=== PATIENT | male | born 1975 | race Caucasian/White ===

== ENCOUNTER 2017-08-12 07:13 | Emergency (ER) | payer OTHER ==
[~2017-08-12] VITALS: Ht 175.3 cm; Wt 155.6 kg
[~2017-08-12 07:13] MED LIST: Adipex-P37.5 M1; FAMO20; LAMO100; LOSARTAN POTASS25 MG; MONT10T; OXYACE5T PO; PROM25 PO; TOPI100
[2017-08-12] MEDS ORDERED: ALBU90OI61 (07:46)
[2017-08-12] MEDS ORDERED: Prednisone20 MG PO (08:24)
[2017-08-12] MEDS ORDERED: ALBU2.5V5 NEB (08:24)
[2018-01-03] MEDS ORDERED: DEXILANT30 MG (10:44)
[2018-01-03] MEDS ORDERED: Lamictal100 MG (10:44)
[2018-01-03] MEDS ORDERED: IRBE150 (10:45)
[2018-01-03] MEDS ORDERED: MONT10T (10:45)
[2018-01-03] MEDS ORDERED: ALLEGRA ALLERGY60 MG (10:46)
[2018-01-03] MEDS ORDERED: CHOL10002 (10:46)
[2018-01-10] MEDS ORDERED: ALBU90OI6 (07:14)
== END 2017-08-12 08:30 | disposition home or self-care (01) ==
LOC: ER 07:13
DX: J06.9 Acute upper respiratory infection, unspecified (principal); I10 Essential (primary) hypertension; Z79.899 Other long term (current) drug therapy; Z88.0 Allergy status to penicillin; Z88.8 Allergy status to other drugs, medicaments and biological substances
CPT/HCPCS: 94640; 99283

== ENCOUNTER 2022-04-13 01:35 | Observation (INO) | payer OTHER ==
[~2022-04-13] VITALS: Ht 175.3 cm; Wt 151.5 kg
[~2022-04-13 01:35] MED LIST changes: +ALBU2.5V5 NEB; +ALBU90OI61; +ALLEGRA ALLERGY60 MG; +DEXILANT30 MG; +IRBE150; +Lamictal100 MG; +PROAIR RESPICL90 MCG INH; +Prednisone20 MG PO; +VITAMIN D310 MC5 PO
[2022-04-13] MEDS ORDERED: ZYRTEC10 M2 PO (02:21)
[2022-04-13 02:35] LABS: BASOPHILS ABSOLUTE AUTO 0.07 K/mm3 (0.00-0.23); BASOPHILS PERCENT AUTO 1 % (0-2); EOSINOPHILS ABSOLUTE AUTO 0.27 K/mm3 (0.00-0.68); EOSINOPHILS PERCENT AUTO 3 % (0-6); Hemoglobin 15.7 g/dL (13.5-17.5); IMMATURE GRAN ABSOLUTE AUTO 0.03 K/mm3 (0.00-0.10); IMMATURE GRAN PERCENT AUTO 0 % (0-1); LYMPHOCYTES PERCENT AUTO 24 % (21-46); MONOCYTES ABSOLUTE AUTO 0.78 K/mm3 (0.16-1.47); MONOCYTES PERCENT AUTO 9 % (4-13); Mean Corpuscular HGB 31.5 pg (26.0-34.0); Mean Corpuscular HGB Conc 34.1 g/dL (31.5-36.5); Mean Corpuscular Volume 92 fL (80-100); Mean Platelet Volume 11.3 fL (9.1-12.4); NEUTROPHILS ABSOLUTE AUTO 5.35 K/mm3 (1.96-9.15); NEUTROPHILS PERCENT AUTO 62 % (41-73); Platelet Count 200 K/mm3 (150-400); RDW Coefficient Variation 12.3 % (11.7-14.2); RDW Standard Deviation 41.9 fL (35.1-46.3); Red Blood Cell Count 4.98 M/mm3 (4.30-5.90)
[2022-04-13 02:56] LABS: Albumin, Blood 3.8 g/dL (3.4-5.0); Albumin/Globulin Ratio 1.2 (0.8-1.8); Bilirubin, Total 0.4 mg/dL (0.1-1.0); Bun/Creatinine Ratio 19.8 (12.0-20.0); Calcium, Blood 9.1 mg/dL (8.5-10.1); Creatinine, Blood 1.11 mg/dL (0.60-1.20); Globulin, Blood 3.1 g/dL (2.2-4.0); Potassium, Blood 4.1 mmol/L (3.5-5.5); Total Protein, Blood 6.9 g/dL (6.4-8.2)
[2022-04-13 04:09] LABS: Source, Urine Clean Catch
[2022-04-13 04:15] LABS: Bilirubin, Urine Neg (Neg); Blood, Urine Neg (Neg); Glucose Qualitative, Urine Neg (Neg); Ketones, Urine Neg (Neg); Leukocyte Esterase, Urine 1+ (Neg); Nitrite, Urine Neg (Neg); Protein, Urine Neg (Neg); Specific Gravity, Urine 1.015 (1.003-1.022); Urobilinogen, Urine NORM (Normal); pH, Urine 6.5 (5.0-8.0)
[2022-04-13 04:25] LABS: Appearance, Urine Clear (Clear); Color, Urine Yellow (P-Yellow)
[2022-04-13 04:26] LABS: Bacteria Not Seen /hpf; Mucus Light (0-Heavy); Red Blood Cells, Urine Not Seen /hpf (0-2); Squamous Epithelial Cells Rare /hpf (Few); White Blood Cells, Urine 0-2 /hpf (0-5)
--- NOTE | 2022-04-13 11:05 | NUR ---
04/13/22 1105 [place] Javed PT ON SCHEDULED ANTIBIOTICS AND RECIEVED PRIOR TO ARRIVAL TO OR.
[2022-04-13] MEDS ORDERED: OXYC5 PO (17:19)
[2022-04-13] MEDS ORDERED: ONDA4ODT MM (17:20)
== END 2022-04-13 18:04 | disposition home or self-care (01) ==
LOC: ER 01:35 → SURS 01:36
PROVIDERS: Emergency Medicine; ADMIT Family Medicine
DX: K80.12 Calculus of gallbladder with acute and chronic cholecystitis without obstruction (principal); E66.01 Morbid (severe) obesity due to excess calories; J45.909 Unspecified asthma, uncomplicated; R03.0 Elevated blood-pressure reading, without diagnosis of hypertension; G47.33 Obstructive sleep apnea (adult) (pediatric); Z87.891 Personal history of nicotine dependence; Z68.42 Body mass index [BMI] 45.0-49.9, adult; Z88.0 Allergy status to penicillin; Z88.8 Allergy status to other drugs, medicaments and biological substances
CPT/HCPCS: 36415; 71275; 76705; 80053; 81001; 83690; 84484; 85025; 93005; 93010; A9270; G0378; J0696; J1100; J1885; J2250; J2270; J2370; J2405; J2704; J2795; J3010; J7120; Q9967

== ENCOUNTER 2024-10-20 10:26 | Emergency (ER) | payer OTHER ==
[~2024-10-20] VITALS: Ht 175.3 cm; Wt 145.2 kg
[~2024-10-20 10:26] MED LIST changes: +IRBE150 PO; +LUTEIN-ZEAXANT1 EAC3 PO; +MELO7.5 PO; +ONDA4ODT MM; +OXYC5 PO; +XYOSTED100 MG/0.1 SQ; +ZYRTEC10 M2 PO
[2024-10-20] MEDS ORDERED: LORA10ER PO (11:05)
[2024-10-20] MEDS ORDERED: ESCI20 PO (11:05)
[2024-10-20 11:11] LABS: BASOPHILS ABSOLUTE AUTO 0.06 K/mm3 (0.00-0.23); BASOPHILS PERCENT AUTO 1 % (0-2); EOSINOPHILS ABSOLUTE AUTO 0.13 K/mm3 (0.00-0.68); EOSINOPHILS PERCENT AUTO 2 % (0-6); Hematocrit 48.8 % (37.0-53.0); Hemoglobin 16.6 g/dL (13.5-17.5); IMMATURE GRAN ABSOLUTE AUTO 0.04 K/mm3 (0.00-0.10); IMMATURE GRAN PERCENT AUTO 1 % (0-1); LYMPHOCYTES ABSOLUTE AUTO 1.36 K/mm3 (0.84-5.20); LYMPHOCYTES PERCENT AUTO 17 % (21-46); MONOCYTES ABSOLUTE AUTO 0.64 K/mm3 (0.16-1.47); MONOCYTES PERCENT AUTO 8 % (4-13); Mean Corpuscular HGB 32.9 pg (26.0-34.0); Mean Corpuscular Volume 97 fL (80-100); Mean Platelet Volume 10.8 fL (9.1-12.4); NEUTROPHILS ABSOLUTE AUTO 5.99 K/mm3 (1.96-9.15); NEUTROPHILS PERCENT AUTO 73 % (41-73); Platelet Count 171 K/mm3 (150-400); RDW Coefficient Variation 11.9 % (11.7-14.2); RDW Standard Deviation 43.1 fL (35.1-46.3); Red Blood Cell Count 5.05 M/mm3 (4.30-5.90); White Blood Cell Count 8.22 K/mm3 (4.00-11.30)
[2024-10-20 11:47] LABS: Albumin, Blood 3.5 g/dL (3.4-5.0); Albumin/Globulin Ratio 1.3 (0.8-1.8); Bilirubin, Total 0.7 mg/dL (0.1-1.0); Bun/Creatinine Ratio 14.6 (12.0-20.0); Calcium, Blood 8.8 mg/dL (8.5-10.1); Creatinine, Blood 1.03 mg/dL (0.60-1.20); Globulin, Blood 2.6 g/dL (2.2-4.0); Potassium, Blood 4.2 mmol/L (3.5-5.5); Total Protein, Blood 6.1 g/dL (6.4-8.2)
[2024-10-20] MEDS ORDERED: Lasix20 MG PO (13:02)
[2024-10-20 13:12] VITALS: BP 150/91
== END 2024-10-20 13:12 | disposition home or self-care (01) ==
LOC: ER 10:26
PROVIDERS: Emergency Medicine
DX: R60.0 Localized edema (principal); R07.89 Other chest pain; R06.02 Shortness of breath; I10 Essential (primary) hypertension; Z88.0 Allergy status to penicillin; Z88.1 Allergy status to other antibiotic agents; Z88.8 Allergy status to other drugs, medicaments and biological substances; Z79.899 Other long term (current) drug therapy
CPT/HCPCS: 71046; 80053; 83880; 84484; 85025; 93005; 93010; 99285-25